=== PATIENT | female | born 2000 | race Two or more races ===

== ENCOUNTER 2025-01-26 06:11 | Emergency (ER) | payer BC, SELFPAY ==
[2025-01-26 06:13] VITALS: BMI 49.3
[2025-01-26 06:14] VITALS: BP 142/87; PULSE 105; RESP 22; TEMP 36.9; O2SAT 100
--- NOTE | 2025-01-26 06:47 | PD.EDRME ---
Rapid Medical Screening Exam [facility] Arrival date/time: 01/26/25 06:11 Chief Complaint: Abdominal Pain Time Seen by Provider: 01/26/25 06:40 Vital signs: Vital Signs Temperature 98.4 F 01/26/25 06:14 Pulse Rate 105 H 01/26/25 06:14 Respiratory Rate 22 H 01/26/25 06:14 Blood Pressure 142/87 H 01/26/25 06:14 Pulse Oximetry (%) 100 01/26/25 06:14 Oxygen Delivery Method Room Air 01/26/25 06:14 [facility] Narrative: 24-year-old female complaining of lower abdominal pain periumbilical in nature associate with nausea vomiting and scant specks of blood along with diarrhea since midnight. Patient's last menstrual period was about a week ago. Denies [id number] female complaining of lower abdominal pain periumbilical in nature associate with nausea vomiting and scant specks of blood along with diarrhea since midnight. Patient's last menstrual period was about a week ago. Denies any abnormal vaginal discharge, dysuria.y abnormal vaginal discharge, dysuria.
--- NOTE | 2025-01-26 06:49 | XR_ITS ---
Examination: CT abdomen with intravenous contrast CT pelvis with intravenous contrast 2-D coronal reconstructions 2-D sagittal reconstructions Date and time of exam: January 26, 2025, 10:30 a.m. INDICATIONS: Generalized abdominal pain beginning 3 days ago. CTDI: vol (mGy) 24.5 DLP: (mGycm) 1387 Technique: Multiple axial sections of the abdomen and pelvis have been obtained. 64 slice high-resolution scanner used. 3 mm axial sections have been obtained, post intravenous injection of 60 cc Isovue-370. 2-D sagittal, coronal reconstructions obtained. Low dose protocols were performed. One or more of the following dose reduction techniques were used; automated exposure control, adjustment of the mA and/or KV according to patient size, use of iterative reconstruction technique. Findings: No focal liver or splenic lesions. No gallstones. No pancreatic or adrenal mass. No renal or ureteral calculi. No hydronephrosis. Aorta normal size. No bowel obstruction. Normal appendix. No pelvic mass. Bladder intact IMPRESSION: No acute process in the abdomen or pelvis
--- NOTE | 2025-01-26 06:49 | EKG_ITS ---
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
[2025-01-26] MEDS: SODIUM CHLORIDE 0.9% 1000 ML 1,000 ML 999 ML IV (07:56)
[2025-01-26] MEDS: METOCLOPRAMIDE INJ 5 MG/ML VIAL 2 ML 10 MG IVP ×2 (07:56→14:18)
--- NOTE | 2025-01-26 07:58 | EDNOTE_ITS ---
ED Abdominal Pain RME/HPI General Chief Complaint: Abdominal Pain Stated complaint: LOWER ABD PAIN WITH VOMITING AND DIARRHEA Time seen by provider: 01/26/25 06:40 Arrival date/time: 01/26/25 06:11 RME / HPI RME / HPI narrative: 24-year-old female complaining of lower abdominal pain periumbilical in nature associate with nausea vomiting and scant specks of blood along with diarrhea since midnight. Patient's last menstrual period was about a week ago. Denies [id number] female complaining of lower abdominal pain periumbilical in nature associate with nausea vomiting and scant specks of blood along with diarrhea since midnight. Patient's last menstrual period was about a week ago. Denies any abnormal vaginal discharge, dysuria, abnormal vaginal discharge, dysuria. Related Data Previous Rx's ?Medication ?Instructions ?Recorded omeprazole 20 mg capsule,delayed 20 mg PO QDAY #30 cap s 08/16/20 release metoclopramide HCl 10 mg tablet 10 mg PO Q6H nausea an d vomiting 01/26/25 (Reglan) #10 tabs Allergies Allergy/AdvReac Type Severity Reaction Status Date / Time No Known Allergies Allergy Verified 01/26/25 06:13 Review of Systems Review of Systems Systems Reviewed: All systems reviewed, normal except as documented ED Exam Narrative Physical exam: Constitutional: Patient alert and oriented. Well appearing. No acute distress. Not toxic appearing. Head: Normocephalic, atraumatic. Eyes: Periorbital regions bilaterally normal to inspection. Conjunctiva clear bilaterally. Sclera anicteric bilaterally. Pupils equal, round, reactive to li ght bilaterally. Extraocular movements intact bilaterally. Mouth/Throat: Mucous membranes moist. No stridor or muffled voice. No trismus. Handling secretions without difficulty. Airway widely patent. Neck: Supple. Trachea midline. No JVD. No nuchal rigidity. Normal range of motion. Respiratory: Normal effort. No accessory muscle use or respiratory distress. Lungs clear to auscultation bilaterally without rhonchi, wheezes, or crackles. Cardiovascular: RRR. Normal S1/S2. No murmurs or rubs. Radial pulses intact bilaterally. Abdomen: Soft. Positive mild tenderness to palpation to Kandy-umbilical region. Non-distended. No pulsatile mass. No guarding or rebound. Negative Dee?s sign. Negative McBurney?s point tenderness. Negative Rovsing?s. Back: No midline tenderness or step-offs. No CVA tenderness to palpation bilaterally. Upper Extremities: No gross deformities. Lower Extremities: No gross deformities. No edema or calf tenderness. Neuro: Speech normal. No gross motor or sensory deficits to upper or lower extremities bilaterally. GCS 15. CN II?XII grossly intact. Skin: Warm, dry, normal color. Psych: Normal affect. Cooperative. Normal insight. Course Course Course Narrative: MDM: The patient presents with abdominal pain without definite explanation found on evaluation today. However, there are no signs of peritonitis or other life- threatening or serious etiology. I considered admission; however, given negative work up and imaging, admission is not indicated. The patient appears stable for discharge and has been instructed to return for re-evaluation immediately if the symptoms worsen or change in any way. If the symptoms are not resolved in 24-48 hours, the patient is asked to get rechecked by their PMD or return to the ED. Quality Measures none Orders Category Date Time Status CT Screening NOW Care 01/26/25 06:49 Active EKG (ED ONLY) *Do not use* NOW Care 01/26/25 06:49 Completed Insert IV STAT Care 01/26/25 06:52 Active NPO STAT Care 01/26/25 06:[address] abdomen pelvis w con Stat Exams 01/26/25 06:49 Completed EKG (ED Only) Stat Exams 01/26/25 06:49 Draft CBC Stat Lab 01/26/25 07:10 Completed Comprehensive Metabolic Panel Stat Lab 01/26/25 07:10 Completed Drug Screen,Urine Stat Lab 01/26/25 07:32 Completed HCG Qualitative,Urine Stat Lab 01/26/25 07:32 Completed Lipase Stat Lab 01/26/25 07:10 Completed Magnesium Stat Lab 01/26/25 07:10 Completed Prothrombin Time with INR Stat Lab 01/26/25 07:10 Completed Urinalysis, C/S if Indicated Stat Lab 01/26/25 07:32 Completed DiphenhydrAMINE INJ [Benadryl Inj] Med 01/26/25 06:50 Discontinued 25 mg IVP X1 ONE DiphenhydrAMINE INJ [Benadryl Inj] Med 01/26/25 14:03 Discontinued 50 mg IVP X1 ONE Metoclopramide Inj [Reglan Inj] Med 01/26/25 06:50 Discontinued 10 mg IVP X1 ONE Metoclopramide Inj [Reglan Inj] Med 01/26/25 14:03 Discontinued 10 mg IVP X1 ONE Morphine* Inj Med 01/26/25 14:03 Discontinued 4 mg IM X1 ONE Morphine* Inj Med 01/26/25 06:50 Discontinued 4 mg IVP Q30M PRN Sodium Chloride 0.9% 1000 ml [Ns] 1,000 ml Med 01/26/25 14:03 Active IV 125 mls/hr Sodium Chloride 0.9% 1000 ml [Ns] 1,000 ml Med 01/26/25 06:50 Discontinued IV 999 mls/hr Vital Signs Vital signs: Vital Signs Temperature 98.4 F 01/26/25 06:14 Pulse Rate 105 H 01/26/25 06:14 Respiratory Rate 22 H 01/26/25 06:14 Blood Pressure 142/87 H 01/26/25 06:14 Pulse Oximetry (%) 100 01/26/25 06:14 Oxygen Delivery Method Room Air 01/26/25 06:14 Abdominal Pain MDM Patient data External records reviewed:: None Clinical information provided by:: patient Social determinants that could affect healthcare access:: none Patient has the following chronic illnesses:: None How is presenting disease/condition affected by chronic disease/condition?: no chronic disease Evaluation data The following diagnostics were reviewed and interpreted by me:: other (specify) Lab and/or radiology exams considered but not ordered:: Labs and radiology considered, but not ordered as they were not clinically indicated at this time. Interpretation Summary: As noted Medications / Prescriptions Medications or Prescriptions considered but not ordered:: I considered prescription management (both outpatient prescriptions AND drug treatment in the ER) and decided that this was necessary and was prescribed as charted. Medication administrations:: Medication Administration History Sodium Chloride (Ns) 1,000 mls @ 125 mls/hr IV .Q8H ONE Stop: 01/26/25 22:02 Last Admin: 01/26/25 14:24 Dose: 125 mls/hr Documented By: TM Discontinued Medications Diphenhydramine HCl (Diphenhydramine Inj 50 Mg/Ml Vial) 25 mg IVP X1 ONE Stop: 01/26/25 06:51 Last Admin: 01/26/25 07:58 Dose: 25 mg Documented By: TM Diphenhydramine HCl (Diphenhydramine Inj 50 Mg/Ml Vial) 50 mg IVP X1 ONE Stop: 01/26/25 14:04 Last Admin: 01/26/25 14:19 Dose: 50 mg Documented By: TM Sodium Chloride (Ns) 1,000 mls @ 999 mls/hr IV .Q1H1M ONE Stop: 01/26/25 07:50 Last Infusion: 01/26/25 08:57 Dose: Infused Documented By: Admin: 01/26/25 07:56 Dose: 999 mls/hr Documented By: TM Metoclopramide HCl (Metoclopramide Inj 5 Mg/Ml Vial 2 Ml) 10 mg IVP X1 ONE Stop: 01/26/25 06:51 Last Admin: 01/26/25 07:56 Dose: 10 mg Documented By: TM Metoclopramide HCl (Metoclopramide Inj 5 Mg/Ml Vial 2 Ml) 10 mg IVP X1 ONE; Protocol Stop: 01/26/25 14:04 Last Admin: 01/26/25 14:18 Dose: 10 mg Documented By: TM Morphine Sulfate (Morphine Sulf Inj 4 Mg/Ml Vial) 4 mg IVP Q30M PRN PRN Reason: PAIN Stop: 01/26/25 08:52 Last Admin: 01/26/25 08:01 Dose: 4 mg Documented By: TM Morphine Sulfate (Morphine Sulf Inj 4 Mg/Ml Vial) 4 mg IM X1 ONE Stop: 01/26/25 14:04 Last Admin: 01/26/25 14:18 Dose: 4 mg Documented By: TM As noted Consultations Consultation(s) initiated? (list below): No Diagnosis Differential diagnosis abdominal pain: abdominal pain, acute appendicitis, constipation, diverticulitis and gastroenteritis Most likely diagnosis given after review of the tests above:: Abdominal pain undifferentiated complicated by Christa-Centeno tear Admission Indicated Admission indicated?: not indicated Admission Request Was there a request for admission?: No Disposition Plan Disposition Plan: Discharge Discharge Attestation Discharge Attestation: The patient and all family members were given an opportunity to ask questions and understood the discharge instructions. Discharge instructions specifically effects, indications for sooner follow up or return to the emergency department, and the expected course of current diagnosis. Patient condition: Stable Discharge Plan Plan Patient Disposition: HOME (Self Care) Patient condition on transfer: Stable Prescriptions/Referrals Prescriptions/Med Rec: New metoclopramide HCl [Reglan] 10 mg tablet 10 mg PO Q6H Qty: 10 0RF No Action omeprazole 20 mg capsule,delayed release(DR/EC) 20 mg PO QDAY Qty: 30 0RF Referrals: Michelle Taylor HOTBED OPERATOR [Primary Care Provider] - In 1 week Problem List Clinical Impression: Abdominal pain Patient/Caregiver Discharge Instructions Education Materials: Abdominal Pain Additional Instructions: Follow up with your primary medical doctor within 24 hours. Return to the Emergency Room immediately for any new, worsening, continuing symptoms or any concerns at all. Return to the Emergency Room within 24 hours if you are unable to follow up with your primary medical doctor within 24 hours. Print Language: Tristanian Stand Alone Forms: [employer] Info., Patient Portal Info Letter
[2025-01-26] MEDS: MORPHINE SULF INJ 4 MG/ML VIAL IVP (08:01)
[2025-01-26 08:07] LABS: Basophils # (Auto) 0.0 Thou/mm3 (0.0-0.2); Basophils % (Auto) 0 % (0-2.5); Eosinophils # (Auto) 0.1 Thou/mm3 (0.0-0.5); Eosinophils % (Auto) 1 % (0-10); Hematocrit 37.8 % (36.0-46.0); Hemoglobin 12.9 g/dL (12.0-16.0); Immature Granulocytes Auto 0.03 Thou/mm3 (0.00-0.00); Lymphocytes # (Auto) 0.9 Thou/mm3 (1.0-4.8); Lymphocytes % (Auto) 8 % (10-50); Mean Corpuscular HGB Conc 34.1 g/dl (31.0-37.0); Mean Corpuscular Hemoglobin 29.1 pg (25.0-35.0); Mean Corpuscular Volume 85 fL (80-100); Monocytes # (Auto) 0.3 Thou/mm3 (0.0-0.8); Monocytes % (Auto) 3 % (0-12); Neutrophils # (Auto) 9.5 Thou/mm3 (1.8-7.7); Neutrophils % (Auto) 87 % (37-80); Nucleated Red Blood Cell # 0.00 Thou/mm3 (0.00-0.00); Nucleated Red Blood Cell % 0 /100 WBC (0); Platelet Count 323 Thou/mm3 (140-440); RDW Standard Deviation 41.3 fL (36.4-46.3); Red Blood Count 4.43 Miln/mm3 (4.00-5.20); White Blood Count 10.9 Thou/mm3 (3.6-11.0)
[2025-01-26 08:16] LABS: INR 1.0 (0.9-1.3); Prothrombin Time 10.9 Seconds (9.0-12.2)
[2025-01-26 08:22] LABS: Alanine Aminotransferase 12 U/L (10-49); Albumin, Serum 4.8 gm/dL (3.5-5.0); Albumin/Globulin Ratio 1.7 (1.2-2.2); Alkaline Phosphatase 63 U/L (46-116); Anion Gap 14 (7-16); Aspartate Amino Transferase 15 U/L (0-34); BUN/Creatinine Ratio 13 Ratio (12-20); Bilirubin,Total 0.6 mg/dL (0.3-1.2); Blood Urea Nitrogen 9 mg/dL (9-23); Calcium 9.4 mg/dL (8.3-10.6); Calcium (Corrected) 9.4 mg/dL (8.5-10.1); Carbon Dioxide 20.5 mMol/L (20.0-31.0); Chloride 107 mMol/L (98-107); Creatinine (Component) 0.7 mg/dL (0.6-1.3); Estimated Creatinine Clearance 180.9 mL/min (>60); Globulin 2.8 gm/dL (2.3-3.5); Glucose 127 mg/dL (74-106); Lipase 31 U/L (12-53); Magnesium 2.0 mg/dL (1.6-2.6); Osmolality,Calculated 281 (275-295); Potassium 3.4 mMol/L (3.4-5.1); Sodium 141 mMol/L (136-145); Total Protein 7.6 gm/dL (5.7-8.2); eGFR > 60 See Note
[2025-01-26 09:33] VITALS: BP 150/90; PULSE 88; RESP 16; TEMP 36.7; O2SAT 100
[2025-01-26 09:35] LABS: Collection Type, Urine Clean Catch
[2025-01-26 09:45] LABS: Bacteria,Urine Rare; Bilirubin,Urine Negative (Negative); Blood,Urine Negative (Negative); Clarity,Urine Clear (Clear/Hazy); Color,Urine Yellow (Lt Yel-Yel); Culture Indicated,Urine Not Indicated; Glucose, Urine Negative (Negative); Ketones,Urine 4+ (Negative); Leukocyte Esterase,Urine Negative (Negative); Nitrite,Urine Negative (Negative); PH,Urine 7.5 (5.0-7.0); Protein,Urine Trace (Neg - Trace); RBC,Urine 2 /hpf (0-3); Specific Gravity,Urine 1.028 (1.001-1.035); Squamous Epithelial Cell,Urine 3 /hpf (0-5); Urobilinogen,Urine 2.0 mg/dL (0.0-1.0); WBC,Urine 2 /hpf (0-5)
[2025-01-26 09:46] LABS: Amphetamine/Methamp Scrn,U Negative (Negative); Barbiturate Screen,Urine Negative (Negative); Benzodiazepines Screen,Urine Negative (Negative); Benzoylecgonine Screen, Ur Negative (Negative); Fentanyl Screen,Urine Negative (Negative); HCG Qualitative,Urine Negative; Opiate Screen,Urine Negative (Negative); THC Screen,Urine Negative (Negative)
[2025-01-26 12:38] VITALS: BP 147/87; PULSE 78; RESP 16; TEMP 37; O2SAT 99
[2025-01-26 14:16] VITALS: BP 160/96; PULSE 94; RESP 18; TEMP 37; O2SAT 99
[2025-01-26] MEDS: MORPHINE SULF INJ 4 MG/ML VIAL IM (14:18)
[2025-01-26] MEDS: SODIUM CHLORIDE 0.9% 1000 ML 1,000 ML 125 ML IV (14:24)
== END 2025-01-26 15:39 | disposition home or self-care (01) ==
PROVIDERS: Physician Assistant; Emergency Provider Emergency Medicine; PCP Registered Nurse Community Health
DX: R10.9 Unspecified abdominal pain (principal)
CPT/HCPCS: 36415; 74177; 80053; 80307; 81001; 81025; 83690; 83735; 85025; 85610; 93005; 96361; 96372; 96374; 96375; 96376; 99284; A4649; J1200; J2270; J2765; J7030; Q9967

== ENCOUNTER 2025-01-27 22:37 | Emergency (ER) | payer BC, SELFPAY ==
[2025-01-27 22:38] VITALS: BMI 48.5
[2025-01-27 22:44] VITALS: BP 132/86; PULSE 107; RESP 20; TEMP 36.7; O2SAT 96
[2025-01-27] MEDS: ONDANSETRON INJ 2 MG/ML INJ 2 ML 4 MG IM (23:00)
[2025-01-27 23:12] LABS: Basophils # (Auto) 0.0 Thou/mm3 (0.0-0.2); Basophils % (Auto) 0 % (0-2.5); Eosinophils # (Auto) 0.1 Thou/mm3 (0.0-0.5); Eosinophils % (Auto) 1 % (0-10); Hematocrit 39.8 % (36.0-46.0); Hemoglobin 13.6 g/dL (12.0-16.0); Immature Granulocytes Auto 0.08 Thou/mm3 (0.00-0.00); Lymphocytes # (Auto) 1.5 Thou/mm3 (1.0-4.8); Lymphocytes % (Auto) 13 % (10-50); Mean Corpuscular HGB Conc 34.2 g/dl (31.0-37.0); Mean Corpuscular Hemoglobin 29.1 pg (25.0-35.0); Mean Corpuscular Volume 85 fL (80-100); Monocytes # (Auto) 0.8 Thou/mm3 (0.0-0.8); Monocytes % (Auto) 7 % (0-12); Neutrophils # (Auto) 8.7 Thou/mm3 (1.8-7.7); Neutrophils % (Auto) 78 % (37-80); Nucleated Red Blood Cell # 0.00 Thou/mm3 (0.00-0.00); Nucleated Red Blood Cell % 0 /100 WBC (0); Platelet Count 368 Thou/mm3 (140-440); RDW Standard Deviation 40.9 fL (36.4-46.3); Red Blood Count 4.68 Miln/mm3 (4.00-5.20); White Blood Count 11.1 Thou/mm3 (3.6-11.0)
--- NOTE | 2025-01-27 23:12 | PD.EDRME ---
Rapid Medical Screening Exam RME Arrival date/time: 01/27/25 22:37 This is a case of 24-year-old female who came into the emergency room due to recurrent abdominal pain nausea vomiting for 3 weeks persistence of the symptoms this patient decided to start consulted in the emergency room Chief Complaint: Abdominal Pain Time Seen by Provider: 01/27/25 22:46 Vital signs: Vital Signs Temperature 98.0 F 01/27/25 22:44 Pulse Rate 107 H 01/27/25 22:44 Respiratory Rate 20 01/27/25 22:44 Blood Pressure 132/86 H 01/27/25 22:44 Pulse Oximetry (%) 96 01/27/25 22:44 Oxygen Delivery Method Room Air 01/27/25 22:44
[2025-01-27 23:35] LABS: Alanine Aminotransferase 16 U/L (10-49); Albumin, Serum 5.3 gm/dL (3.5-5.0); Albumin/Globulin Ratio 1.7 (1.2-2.2); Alkaline Phosphatase 67 U/L (46-116); Anion Gap 13 (7-16); Aspartate Amino Transferase 18 U/L (0-34); BUN/Creatinine Ratio 10 Ratio (12-20); Bilirubin,Total 0.8 mg/dL (0.3-1.2); Blood Urea Nitrogen 8 mg/dL (9-23); Calcium 10.2 mg/dL (8.3-10.6); Calcium (Corrected) 10.2 mg/dL (8.5-10.1); Carbon Dioxide 25.0 mMol/L (20.0-31.0); Chloride 101 mMol/L (98-107); Creatinine (Component) 0.8 mg/dL (0.6-1.3); Estimated Creatinine Clearance 156.8 mL/min (>60); Globulin 3.1 gm/dL (2.3-3.5); Glucose 114 mg/dL (74-106); Lipase 31 U/L (12-53); Osmolality,Calculated 276 (275-295); Potassium 3.1 mMol/L (3.4-5.1); Sodium 139 mMol/L (136-145); Total Protein 8.4 gm/dL (5.7-8.2); eGFR > 60 See Note
[2025-01-27 23:47] LABS: Collection Type, Urine Clean Catch
[2025-01-28] LABS: Bacteria,Urine Rare; Bilirubin,Urine Negative (Negative); Blood,Urine Trace (Negative); Clarity,Urine Turbid (Clear/Hazy); Color,Urine Yellow (Lt Yel-Yel); Glucose, Urine Negative (Negative); Ketones,Urine 1+ (Negative); Leukocyte Esterase,Urine Positive (Negative); Nitrite,Urine Negative (Negative); PH,Urine 6.0 (5.0-7.0); Protein,Urine 1+ (Neg - Trace); RBC,Urine 2 /hpf (0-3); Specific Gravity,Urine 1.032 (1.001-1.035); Squamous Epithelial Cell,Urine 15 /hpf (0-5); Urobilinogen,Urine Negative mg/dL (0.0-1.0); WBC,Urine 31 /hpf (0-5)
[2025-01-28 00:07] LABS: Amphetamine/Methamp Scrn,U Negative (Negative); Barbiturate Screen,Urine Negative (Negative); Benzodiazepines Screen,Urine Negative (Negative); Benzoylecgonine Screen, Ur Negative (Negative); Fentanyl Screen,Urine Positive (Negative); Opiate Screen,Urine Positive (Negative); THC Screen,Urine Negative (Negative)
--- NOTE | 2025-01-28 00:33 | EDNOTE_ITS ---
ED Abdominal Pain RME/HPI General Chief Complaint: Abdominal Pain Stated complaint: ABD PAIN/ VOMITING X 3DAYS Time seen by provider: 01/27/25 22:46 Arrival date/time: 01/27/25 22:37 RME / HPI RME / HPI narrative: 01/27/25 22:37 This is a case of 24-year-old female who came into the emergency room due to recurrent abdominal pain nausea vomiting for 3 weeks persistence of the symptoms this patient decided to start consulted in the emergency room --------- Dr. Marcelino?s Main ED Evaluation: 24yo female presenting with persistent N/V x 3 days, having been seen 1 day LMFT, underwent extensive work-up which was unremarkable and was discharged home on Reglan without relief. No reported fever or chills. Patient attributes her current symptoms to eating chicken 3 days ago prior to onset of symptoms. Denies diarrhea. Has cramping epigastric pain. PMH includes GERD, but no DM, HTN, or psychiatric illness. PSH unremarkable. Related Data Previous Rx's ?Medication ?Instructions ?Recorded omeprazole 20 mg capsule,delayed 20 mg PO QDAY #30 cap s 08/16/20 release metoclopramide HCl 10 mg tablet 10 mg PO Q6H nausea an d vomiting 01/26/25 (Reglan) #10 tabs esomeprazole magnesium 20 mg 20 mg PO QDAY #30 caps capsule,delayed release (Acid Water Resource Consultant (esomeprazole)) promethazine 25 mg rectal 25 mg SC Q6H PRN nausea and 01/28/25 suppository vomiting #12 ea promethazine 25 mg tablet 25 mg PO TID #20 tabs Allergies Allergy/AdvReac Type Severity Reaction Status Date / Time No Known Allergies Allergy Verified 01/26/25 06:13 Review of Systems Review of Systems Systems Reviewed: All systems reviewed, normal except as documented Past Medical History Past Medical History CARDIAC: Negative Cardiac Disorders or Congestive Heart Failure RESPIRATORY: Positive Asthma; Negative Chronic Obstructive Pulmonary Disease (COPD) GENITOURINARY: Negative Renal Disease ENDOCRINE: Negative Diabetes Mellitus Type 1 or Diabetes Mellitus Type 2 HEMATOLOGIC: Negative Sickle Cell Disease Family History FAMILY HISTORY: Positive Family Gastrointestinal Problems Social History SMOKING STATUS: Never smoker SECOND HAND EXPOSURE: No ED Exam Narrative Physical exam: GENERAL APPEARANCE: alert and oriented x 4, actively wretching, in moderate distress VITALS: All vitals were reviewed and the pulse ox is 96% on room air, which is normal according to my interpretation. HEENT: Normocephalic, atraumatic; pupils equal, round, reactive to light; EOMI; mucous membranes pink, moist; oropharynx clear NECK: Supple LUNGS: CTABL; no wheezes, no rales, no rhonchi HEART: Regular rate, regular rhythm; normal S1, S2; no murmurs ABDOMEN: non distended; obese, soft, localized tenderness to the epigastric region, slight guarding; no peritoneal findings BACK: no CVA tenderness EXTREMITIES: atraumatic; no edema NEUROLOGIC: awake; alert and oriented x4; cranial nerves II-XII grossly intact; no focal sensory or motor deficits PSYCHIATRIC: appropriate mood and affect SKIN: warm, dry, normal color; no rashes Course Quality Measures none Orders Category Date Time Status CBC Stat Lab 01/27/25 23:05 Completed Comprehensive Metabolic Panel Stat Lab 01/27/25 23:05 Completed Drug Screen,Urine Stat Lab 01/27/25 23:14 Completed Lipase Stat Lab 01/27/25 23:05 Completed Urinalysis Stat Lab 01/27/25 23:14 Completed Ondansetron Inj [Zofran Inj] Med 01/27/25 22:47 Discontinued 4 mg IM X1 ONE Pantoprazole Inj [Protonix Inj] Med 01/28/25 00:54 Discontinued 40 mg IVP X1 ONE Prochlorperazine Inj [Compazine Inj] Med 01/28/25 00:54 Discontinued 10 mg IV X1 ONE Promethazine Inj [Phenergan Inj] Med 01/28/25 01:42 Discontinued 25 mg .ROUTE .STK-MED ONE Promethazine Inj [Phenergan Inj] 25 mg Med 01/28/25 00:58 Discontinued Sodium Chloride 0.9% [Ns] 50 ml IV X1 Sodium Chloride 0.9% 1000 ml [Ns] 1,000 ml Med 01/28/25 00:54 Discontinued IV 999 mls/hr Vital Signs Vital signs: Vital Signs Temperature 98.0 F 01/27/25 22:44 Pulse Rate 107 H 01/27/25 22:44 Respiratory Rate 20 01/27/25 22:44 Blood Pressure 132/86 H 01/27/25 22:44 Pulse Oximetry (%) 96 1012/25 22:44 Oxygen Delivery Method Room Air 01/27/25 22:44 Abdominal Pain [facility] Narrative [facility] Narrative:: Scribe Attestation: 01/28/25 Karla Hale am scribing for and in the presence of Dr. Marcelino. 24yo female presenting with persistent N/V x 3 days, having been seen 1 day LMFT, underwent extensive work-up which was unremarkable and was discharged home on Reglan without relief. No reported fever or chills. Please see PE findings. Lab markers demonstrated marginally elevated WBC count 11.1, normal Hgb and Plt, no left shift or bandemia. Chemistries demonstrated K 3.1 replaced via IV supplement. UA contaminated. Aggressively hydrated to correct volume deficit and was given incremental doses antiemetics. On serial reevaluation, patient is resting comfortably, nausea is controlled, and considered stable for discharge. Will defer on antibiotic therapy given possibility of Staph food poisoning versus viral entity. Patient data External records reviewed:: [facility] previous records (Per chart review, patient was seen here on 01/26/25 for abdominal pain.) Clinical information provided by:: patient Social determinants that could affect healthcare access:: none Patient has the following chronic illnesses:: asthma How is presenting disease/condition affected by chronic disease/condition?: uneffected by Evaluation data The following diagnostics were reviewed and interpreted by me:: lab results Lab and/or radiology exams considered but not ordered:: none Interpretation Summary: See [facility] Medications / Prescriptions Medications or Prescriptions considered but not ordered:: none Medication administrations:: Medication Administration History Discontinued Medications Sodium Chloride (Ns) 1,000 mls @ 999 mls/hr IV .Q1H1M ONE Stop: 01/28/25 01:54 Last Infusion: 01/28/25 02:38 Dose: Infused Documented By: Admin: 01/28/25 01:30 Dose: 999 mls/hr Documented By: DANITA Promethazine HCl 25 mg/ Sodium (Chloride) 51 mls @ 2.5 mls/min IV X1 ONE; Protocol Stop: 01/28/25 01:18 Last Infusion: 01/28/25 02:06 Dose: Infused Documented By: Admin: 01/28/25 01:43 Dose: 2.5 mls/min Documented By: DANITA Ondansetron HCl (Ondansetron Inj 2 Mg/Ml Inj 2 Ml) 4 mg IM X1 ONE; Protocol Stop: 01/27/25 22:48 Last Admin: 01/27/25 23:00 Dose: 4 mg Documented By: KWASI Pantoprazole Sodium (Pantoprazole Inj 40 Mg Vial) 40 mg IVP X1 ONE Stop: 01/28/25 00:55 Last Admin: 01/28/25 01:32 Dose: 40 mg Documented By: DANITA Prochlorperazine Edisylate (Prochlorperazine Inj 5 Mg/Ml Vial 2 Ml) 10 mg IV X1 ONE; Protocol Stop: 01/28/25 00:55 Last Admin: 01/28/25 01:24 Dose: Not Given Documented By: DANITA Non-Admin Reason: Cancelled by Provider Promethazine HCl (Promethazine Inj 25 Mg/Ml Vial) Confirm Administered Dose 25 mg .ROUTE .STK-MED ONE Stop: 01/28/25 01:43 see above Consultations Consultation(s) initiated? (list below): No Diagnosis Differential diagnosis abdominal pain: abdominal pain, constipation, gastroenteritis and other (food poisoning, drug-induced vomiting, gastritis, GERD) Most likely diagnosis given after review of the tests above:: see clinical impression below Admission Indicated Admission indicated?: not indicated Admission Request Was there a request for admission?: No Disposition Plan Disposition Plan: Discharge Discharge Attestation Discharge Attestation: The patient and all family members were given an opportunity to ask questions and understood the discharge instructions. Discharge instructions specifically effects, indications for sooner follow up or return to the emergency department, and the expected course of current diagnosis. Patient condition: Stable Discharge Plan Plan Patient Disposition: HOME (Self Care) Discharge Disposition comment: Stable Prescriptions/Referrals Prescriptions/Med Rec: New esomeprazole magnesium [Acid Water Resource Consultant (esomeprazole)] 20 mg capsule,delayed release(DR/EC) 20 mg PO QDAY Qty: 30 0RF promethazine 25 mg suppository 25 mg SC Q6H PRN (Reason: nausea and vomiting) Qty: 12 0RF promethazine 25 mg tablet 25 mg PO TID Qty: 20 0RF No Action omeprazole 20 mg capsule,delayed release(DR/EC) 20 mg PO QDAY Qty: 30 0RF metoclopramide HCl [Reglan] 10 mg tablet 10 mg PO Q6H Qty: 10 0RF Referrals: No Primary/Family,Physician [Primary Care Provider] - In 1 week Problem List Clinical Impression: Gastritis, Nausea and vomiting in adult Patient/Caregiver Discharge Instructions Discharge Activity: activity as tolerated Diet Instructions: Clear liquid diet x 24 to 48 hours and advance diet as directed. Medication as directed. Avoid hot spicy foods and foods irritating to the stomach. Follow-up with primary care doctor as you may ultimately require upper endoscopy should symptoms persist. Education Materials: ED Gastritis (Adult) Additional Instructions: Clear liquid diet x 24 to 48 hours and advance diet as directed. Medication as directed. Avoid hot spicy foods and foods irritating to the stomach. Follow-up with primary care doctor as you may ultimately require upper endoscopy should symptoms persist. Print Language: Kyrgyz Stand Alone Forms: [employer] Info., Patient Portal Info Letter
[2025-01-28] MEDS: SODIUM CHLORIDE 0.9% 1000 ML 1,000 ML 999 ML IV (01:30)
[2025-01-28 01:33] VITALS: BP 101/70; PULSE 71; RESP 20; TEMP 37.1; O2SAT 100
[2025-01-28] MEDS: PROMETHAZINE INJ 25 MG in SODIUM CHLORIDE 0.9% 50 ML IV (01:43)
[2025-01-28 03:34] VITALS: BP 118/58; PULSE 81; RESP 18; O2SAT 100
== END 2025-01-28 03:35 | disposition home or self-care (01) ==
PROVIDERS: Nurse Practitioner Family; Emergency Provider Emergency Medicine
DX: K29.70 Gastritis, unspecified, without bleeding (principal)
CPT/HCPCS: 36415; 80053; 80307; 81001; 83690; 85025; 96361; 96365; 96372; 96375; 99283; J2405; J2470; J2550; J7030